=== PATIENT | female | born 1980 | race Caucasian/White ===

== ENCOUNTER 2017-02-14 07:52 | Emergency (ER) | payer BC ==
[~2017-02-14] VITALS: Ht 175.3 cm; Wt 120.2 kg
[~2017-02-14 07:52] MED LIST: ACET500T68 PO; CETI10TA22 PO; CHOL100013 PO; CIPR500T94 PO; CITA10TA8 PO; HYDR-971 PO; IBUP400T PO; MULT1TAB52 PO; NALT1TAB PO; ONDA4TAB10 SL; PHEN-318 PO; birth control
[2017-02-14] MEDS: FENTANYL PF 100 MCG/2 ML VIAL. IV ONE ×2 (08:36→12:50)
[2017-02-14] MEDS: ONDANSETRON PF 4 MG/2 ML VIAL. IV ONE (08:37)
[2017-02-14] MEDS: KETOROLAC 30 MG/ML VIAL. IV ONE (08:37)
[2017-02-14] MEDS: MORPHINE SULFATE 4 MG/ML DISP.SYRIN. IV ONE (09:14)
--- NOTE | 2017-02-14 09:58 | RAD ---
CT of the lumbar spine without contrast, 02/14/2017: History: Back pain Noncontrast scans were obtained with multiplanar reconstructions produced. No fracture or dislocation is identified. There is generalized borderline narrowing of the lumbar spinal canal due to short pedicles. There is minimal anterior spurring at L3-4. There are mild scattered posterior disc bulges. No disc herniation is seen. No significant central spinal stenosis or foraminal encroachment is seen. Incidental note is made of hepatic steatosis. IMPRESSION: No acute lumbar spine abnormality is detected. PQRS Compliance Statement: One or more of the following individualized dose reduction techniques were utilized for this examination: 1. Automated exposure control 2. Adjustment of the mA and/or kV according to patient size 3. Use of iterative reconstruction technique
[2017-02-14] MEDS: DIAZEPAM 10 MG/2 ML DISP.SYRIN. IV ONE (10:30)
[2017-02-14 11:45] LABS: BASO # 0.1 x10^3/uL (0.0-0.2); BASO % 1 % (0-3); EOS # 0.3 x10^3/uL (0.0-0.7); EOS % 5 % (0-3); HEMATOCRIT 40.1 % (36.0-47.0); HEMOGLOBIN 13.6 g/dL (12.0-15.5); LYMPH # 2.4 x10^3/uL (1.0-4.8); LYMPH % 33 % (24-48); MEAN CORPUSCULAR HEMOGLOBIN 29 pg (25-35); MEAN CORPUSCULAR HGB CONC 34 g/dL (31-37); MEAN CORPUSCULAR VOLUME 85 fL (79-100); MONO # 0.4 x10^3/uL (0.0-1.1); MONO % 6 % (0-9); NEUT % 56 % (31-73); PLATELET COUNT 195 x10^3/uL (140-400); RED CELL DISTRIBUTION WIDTH 13.3 % (11.5-14.5); WHITE BLOOD COUNT 7.2 x10^3/uL (4.0-11.0)
[2017-02-14 11:57] LABS: ALBUMIN 3.5 g/dL (3.4-5.0); GFR 62.4; POTASSIUM 4.3 mmol/L (3.5-5.1); TOTAL BILIRUBIN 0.4 mg/dL (0.2-1.0); TOTAL PROTEIN 7.1 g/dL (6.4-8.2)
--- NOTE | 2017-02-14 12:10 | ED.ADGEN ---
Past History Past Medical History: Sciatica Past Surgical History: Hysterectomy Alcohol Use: None Drug Use: None Adult General Chief Complaint Chief Complaint Back pain HPI HPI Patient is a 36-year-old female presents with acute onset left lower lumbar paravertebral pain radiating to upper back. Patient was bending over to cone picker an object when she felt sudden onset sharp pain. Pain is worse with palpation, and movement. Patient denies any weakness or loss of bowel or bladder function. Patient reports paresthesias and left anterior thighs, denies numbness. History of sciatica, states pain feels different. No other acute symptoms or complaints. Review of Systems Review of Systems Review symptoms as per history of present illness. All other review symptoms are negative. Current Medications Current Medications Current Medications Medications (Trade) Dose Ordered Sig/Anita Start Time Stop Time Status Last Admin Dose Admin Diazepam (Valium) 5 mg 1X ONCE 02/14/17 10:50 02/14/17 10:51 DC 02/14/17 10:30 5 MG Fentanyl Citrate (Fentanyl 2ml Vial) 75 mcg 1X ONCE 02/14/17 08:30 02/14/17 08:46 DC 02/14/17 08:36 75 MCG Ketorolac Tromethamine (Toradol) 30 mg 1X ONCE 02/14/17 08:30 02/14/17 08:46 DC 02/14/17 08:37 30 MG Morphine Sulfate (Morphine 4mg Syringe) 4 mg 1X ONCE 02/14/17 09:40 02/14/17 09:41 DC 02/14/17 09:14 4 MG Ondansetron HCl (Zofran) 4 mg 1X ONCE 02/14/17 08:30 02/14/17 08:46 DC 02/14/17 08:37 4 MG Allergies Allergies Allergies Coded Allergies Type Severity Reaction Last Updated Verified warfarin Allergy Unknown 02/14/17 Yes Physical Exam Physical Exam Constitutional: Moderate discomfort secondary to pain. HENT: Normocephalic, atraumatic, bilateral external ears normal, oropharynx moist, no oral exudates, nose normal. Eyes: PERRLA, EOMI, conjunctiva normal. Neck: Normal range of motion, no tenderness. Cardiovascular:Heart rate regular rhythm, no murmur. Lungs & Thorax: Bilateral breath sounds clear to auscultation. Abdomen: Bowel sounds normal, soft, no tenderness. Skin: Warm, dry, no erythema. Back: No tenderness, diffuse left lower paravertebral pain, muscle spasm reproducing symptoms or complaints. Extremities: No tenderness. Neurologic: Alert and oriented X 3, a, no motor weakness or loss of sensation. Psychologic: Affect normal, judgement normal, mood normal. Current Patient Data Vital Signs Vital Signs Date Time Temp Pulse Resp B/P Pulse Ox O2 Delivery O2 Flow Rate FiO2 02/14/17 09:14 20 02/14/17 08:12 97.6 71 96 Room Air Lab Results Laboratory Tests Test 02/14/17 11:31 White Blood Count 7.2x10^3/uL (4.0-11.0) Red Blood Count 4.70x10^6/uL (3.50-5.40) Hemoglobin 13.6g/dL (12.0-15.5) Hematocrit 40.1% (36.0-47.0) Mean Corpuscular Volume 85fL (79-100) Mean Corpuscular Hemoglobin 29pg (25-35) Mean Corpuscular Hemoglobin Concent 34g/dL (31-37) Red Cell Distribution Width 13.3% (11.5-14.5) Platelet Count 195x10^3/uL (140-400) Neutrophils (%) (Auto) 56% (31-73) Lymphocytes (%) (Auto) 33% (24-48) Monocytes (%) (Auto) 6% (0-9) Eosinophils (%) (Auto) 5% (0-3) H Basophils (%) (Auto) 1% (0-3) Neutrophils # (Auto) 4.0x10^3uL (1.8-7.7) Lymphocytes # (Auto) 2.4x10^3/uL (1.0-4.8) Monocytes # (Auto) 0.4x10^3/uL (0.0-1.1) Eosinophils # (Auto) 0.3x10^3/uL (0.0-0.7) Basophils # (Auto) 0.1x10^3/uL (0.0-0.2) Sodium Level 139mmol/L (136-145) Potassium Level 4.3mmol/L (3.5-5.1) Chloride Level 105mmol/L (98-107) Carbon Dioxide Level 28mmol/L (21-32) Anion Gap 6 (6-14) Blood Urea Nitrogen 9mg/dL (7-20) Creatinine 1.0mg/dL (0.6-1.0) Estimated GFR (Cockcroft-Gault) 62.4 BUN/Creatinine Ratio 9 (6-20) Glucose Level 95mg/dL (70-99) Calcium Level 9.0mg/dL (8.5-10.1) Total Bilirubin 0.4mg/dL (0.2-1.0) Aspartate Amino Transferase (AST) 26U/L (15-37) Alanine Aminotransferase (ALT) 36U/L (14-59) Alkaline Phosphatase 86U/L (46-116) Total Protein 7.1g/dL (6.4-8.2) Albumin 3.5g/dL (3.4-5.0) Albumin/Globulin Ratio 1.0 (1.0-1.7) EKG EKG [] Radiology/Procedures Radiology/Procedures [CT lumbar spine without contrast: No acute bony abnormality per radiology report.] Impressions: Intractable lower back pain without motor weakness Course & Med Decision Making Course & Med Decision Making Pertinent Labs and Imaging studies reviewed. (See chart for details) [Pain is pain poorly controlled despite repeated narcotics, anti-inflammatories and muscle relaxants. [facility] transfer to [facility] due to potential need of MRI and/or neurosurgical consultation. Case discussed with Dr. Jacob prior to transfer. Dr Newman accepts.. Final Impression Final Impression [#1 intractable low back pain] Problems: Dragon Disclaimer Dragon Disclaimer This electronic medical record was generated, in whole or in part, using a voice recognition dictation system. ERICKA GUERRERO DO Feb 14, 2017 12:10
[2017-02-14 13:18] VITALS: BP 109/51
--- NOTE | 2017-02-14 13:33 | ACF ---
Admission Criteria Forms BACK PAIN Clinical Indications for Admission to Inpatient Care (Place 'X' for any and all applicable criteria): Admission is indicated for ANY ONE of the following (1)(2)(3)(4)(5)(6): [X]I. Inpatient admission required rather than observation care (Also use Back Pain: Observation Care as appropriate) because of ANY ONE of the following [X]a) Severe pain requiring acute inpatient management [ ]b) Immediate inpatient surgery [ ]c) Other condition, treatment or monitoring requiring inpatient admission [ ]II. Spine fracture with significant damage or threat of damage to vertebral column or spinal cord [ ]III. Progressive or severe neurologic deficit [ ]IV. Suspected spinal infection (e.g., epidural abscess, vertebral osteomyelitis)(10) [ ]V. Suspected cause requires inpatient treatment (eg, aortic dissection) [ ]. Cauda equina syndrome as indicated by ANY ONE of the following (9): [ ]a) Bowel dysfunction [ ]b) Bladder dysfunction [ ]c) Saddle anesthesia [ ]d) Neurologic abnormality suggesting cauda equina impingement Extended stay beyond goal length of stay may be needed for (3)(25): [ ]a) Spinal cord compression from stenosis, disk, or tumor (8)(9) [ ]b) Traumatic or pathologic vertebral fracture (33) [ ]c) Vertebral infection(10) [ ]d) Severe pain that is difficult to control [ ]e) Older patients(65 years or older) The original [employer] content created by [employer] has been revised. The portions of the content which have been revised are identified through the use of italic text or in bold, and [facility] has neither reviewed nor approved the modified material. All other unmodified content is copyright [employer]. Please see references footnoted in the original [facility] edition 2016 Admission Criteria Met?: Yes REA GHOTRA Feb 14, 2017 13:33
== END 2017-02-14 15:10 ==
LOC: ER 07:52
DX: M54.5 Low back pain (principal); Z88.8 Allergy status to other drugs, medicaments and biological substances
CPT/HCPCS: 36415; 72131; 80053; 85027; 96374; 96375; 96376; 99285; J1885; J2270; J2405; J3010

== ENCOUNTER → 2021-06-11 | Outpatient (CLI) | payer BC ==
[~2021-06-11] MED LIST changes: -CETI10TA22 PO; +CETI10TA74 PO; +HYDR-3165 PO; -HYDR-971 PO; -IBUP400T PO; +IBUP400T18 PO; +MULT-445 PO; -MULT1TAB52 PO
--- NOTE | 2021-06-11 08:40 | RAD ---
INDICATION : Reason: ABDOMINAL PAIN / Spl. Instructions: / History: COMPARISON: None TECHNIQUE: Multiple ultrasound images obtained through the abdomen in grayscale and color. FINDINGS: Pancreas: Limited visualization secondary to overlying structures obscuring. Liver: Echogenic. Portions not well seen secondary to overlying structures obscuring. Gallbladder: Removed IVC: Limited visualization secondary to overlying structures obscuring. Common Bile Duct: Not well seen secondary to overlying structures obscuring. Visualized portion is no t dilated. Right Kidney: No hydronephrosis. IMPRESSION: * Liver is echogenic. Nonspecific but can be seen with fatty infiltration. * Postcholecystectomy with the partially visualized common bile duct not dilated. Electronically signed by: Andrea Tolbert MD (06/11/2021 8:37 AM) [id number]
== END ==
LOC: US 07:50
PROVIDERS: ATTEND Specialist
DX: R10.9 Unspecified abdominal pain (principal)
CPT/HCPCS: 76705